=== PATIENT | male | born 1950 | race African-American/Black ===

== ENCOUNTER 2020-02-14 00:43 | Emergency (ER) | payer OTHER ==
[2020-02-14 00:50] VITALS: BP 168/88; PULSE 54; BMI 27.8
--- NOTE | 2020-02-14 00:59 | PDOC ---
History of Present Illness - General Chief Complaint: Blood Sugar Problem Stated Complaint: HYPOGLYCEMIA Time Seen by Provider: 02/14/20 00:58 History Source: Patient, EMS Exam Limitations: No Limitations - History of Present Illness Initial Comments: 02/14/20 01:10 Pt was found somnolent and confused in his car. Pt his blood sugar was 45 on scene. He was brought to the ER. Is this a multiple visit Asthma Patient?: No Past History - Travel History Traveled outside of the country in the last 30 days: No Close contact w/someone who was outside of country & ill: No - Medical History Allergies/Adverse Reactions: Allergies Allergy/AdvReac Type Severity Reaction Status Date / Time No Known Allergies Allergy Unverified 02/14/20 00:44 Home Medications: Ambulatory Orders Carvedilol 25 mg PO BID 02/14/20 Cyclosporine 100 mg PO BID 02/14/20 Humalog 02/14/20 Insulin Glargine,Hum.rec.anlog [Lantus] 30 unit SQ HS 02/14/20 Mycophenolate Mofetil [Cellcept] 250 mg PO BID 02/14/20 Nifedipine [Nifedipine ER] 60 mg PO BID 02/14/20 Prednisone 5 mg PO DAILY 02/14/20 Sulfamethoxazole/Trimethoprim [Bactrim Single Strength -] 1 tab PO BID 02/14/20 Warfarin Sodium [Coumadin] 1 mg PO DAILY 02/14/20 Warfarin Sodium [Jantoven] 5 mg PO DAILY 02/14/20 hydrALAZINE HCL [Apresoline -] 50 mg PO BID 02/14/20 Cardiac Disorders: Yes COPD: No Diabetes: Yes Dialysis: Yes (ESRD WITH KIDNEY [place]) HTN: Yes - Surgical History Cardiac Surgery: Yes (AVR) - Psycho-Social/Smoking History Smoking History: Never smoked Review of Systems - Review of Systems Able to Perform ROS?: No Is the patient limited Korean proficient: No Constitutional: No: Symptoms Reported, See HPI, Chills, Diaphoresis, Fever, Loss of Appetite, Malaise, Night Sweats, Weakness, Weight Stable, Unintentional Wgt. Loss, Unexplained wgt Loss, Other HEENTM: No: Symptoms Reported, See HPI, Eye Pain, Blurred Vision, Tearing, Recent change in vision, Double Vision, Cataracts, Ear Pain, Ocular Prothesis, Ear Discharge, Nose Pain, Nose Congestion, Tinnitus, Nose Bleeding, Hearing Loss, Throat Pain, Throat Swelling, Mouth Pain, Dental Problems, Difficulty Swallowing, Mouth Swelling, Other Respiratory: No: Symptoms reported, See HPI, Cough, Orthopnea, Shortness of Breath, SOB with Exertion, SOB at Rest, Stridor, Wheezing, Productive cough, Hemoptysis, Other Cardiac (ROS): No: Symptoms Reported, See HPI, Chest Pain, Edema, Irregular Heart Rate, Lightheadedness, Palpitations, Syncope, Chest Tightness, Other ABD/GI: No: Symptoms Reported, See HPI, Abdominal Distended, Abd. Pain w/ defecation, Blood Streaked Bowels, Constipated, Diarrhea, Difficulty Swallowing, Nausea, Poor Appetite, Poor Fluid Intake, Rectal Bleeding, Vomiting, Indigestion, Abdominal cramping, Tarry Stools, Other : No: Symptoms Reported, See HPI, Burning, Dysuria, Discharge, Frequency, Flank Pain, Hematuria, Incontinence, Pain, Urgency, Testicular Mass, Testicular Swelling, Lesions, Testicular Pain, Other Musculoskeletal: No: Symptoms Reported, See HPI, Back Pain, Gout, Joint Pain, Joint Swelling, Muscle Pain, Muscle Weakness, Neck Pain, Joint Stiffness, Other *Physical Exam - Vital Signs Last Vital Signs Temp Pulse Resp BP Pulse Ox 54 L 16 168/88 100 02/14/20 00:44 02/14/20 00:44 02/14/20 00:44 02/14/20 00:44 - Physical Exam General Appearance: Yes: Nourished, Appropriately Dressed. No: Apparent Distress HEENT: positive: EOMI, TYLOR, Normal ENT Inspection, Normal Voice, Symmetrical, TMs Normal, Pharynx Normal Neck: positive: Trachea midline, Supple Respiratory/Chest: positive: Lungs Clear, Normal Breath Sounds Cardiovascular: positive: Regular Rhythm, Regular Rate, S1, S2 Gastrointestinal/Abdominal: positive: Normal Bowel Sounds, Flat, Soft Musculoskeletal: positive: Normal Inspection. negative: CVA Tenderness, Vertebral Tenderness Extremity: positive: Normal Capillary Refill, Normal Inspection Integumentary: positive: Normal Color, Dry, Warm Neurologic: positive: shopping centre manager II-XII NML intact, Fully Oriented, Alert, Normal Mood/Affect, Normal Response, Motor Strength 5/5 Moderate Sedation - Post Procedure Assessment Tolerated procedure well: No Was a reversal agent used?: No Medical Decision Making - Medical Decision Making 02/14/20 01:16 Pt received D10 in the ambulance. Woke up and states that he feels hungry. Pt fed a small sandwich as well as a glass of apple juice cocktail. Pt's blood suigar is 90. He will be given D50 and asked to eat something at home. He can recheck blood sugar on his own at home. Pt's adult children are here to collect him. 02/14/20 01:53 Pt feeling better. Stable on his feet. Advised not to take his night time dose of insulin. Pt will spend the night with family tonight He has blood sugar monitoring equipment at home. Discharge - Discharge Information Problems reviewed: Yes Clinical Impression/Diagnosis: Hypoglycemia Condition: Improved Disposition: HOME - Admission No - Follow up/Referral - Patient Discharge Instructions Patient Printed Discharge Instructions: DI for Hypoglycemia - Post Discharge Activity Work/Back to School Note: Back to Work
[2020-02-14] MEDS ORDERED: DEXTROSE 50%-WATER - 25 GM/50 ML VIAL IVPUSH ONE (01:09)
[2020-02-14] MEDS ORDERED: DEXTROSE 50%-WATER 25 GM/50 ML DISP.SYRIN ONE (01:10)
== END 2020-02-14 01:35 | disposition home or self-care (01) ==
LOC: FER 00:43
PROC: 3E013VG Introduction of Insulin into Subcutaneous Tissue, Percutaneous Approach (ICD-10-PCS; principal; 2020-02-14)
DX: E16.2 Hypoglycemia, unspecified (principal)
CPT/HCPCS: 82962; 99284-25